=== PATIENT | male | born 1985 | race Two or more races ===

== ENCOUNTER 2025-10-13 12:47 | Outpatient (OUT) | payer BC, SELFPAY ==
--- OUTSIDE RECORDS SUMMARY | 2025-10-13 12:56 | XMS_ITS | Clinical Summary ---
Author Organization [facility] Healthcare Address [address] [place] [address] Care Team Providers Care Buffing Wheel Former Automatic Name Role Phone Unavailable Primary Care Provider Unavailabl e Social History Tobacco UseTypesPacks/DayYears UsedDateSmoking Tobacco: Never AssessedSex and Gender InformationValueDate RecordedSex Assigned at BirthNot on fileLegal Sex Male01/08/2023 11:09 PM EDTGender IdentityNot on fileSexual OrientationNot on file Last Filed Vital Signs Vital SignReadingTime TakenCommentsBlood Svgpddqf346/7507 12:00 PM EDT Pulse--Temperature--Respiratory Rate--Oxygen Saturation--Inhaled Oxygen Concentration--Zdftnf484 kg (229 lb)05/21/2022 12:00 PM ARYHejqvb662.8 cm (5' 10 )05/21/2022 12:00 PM EDTBody Mass Index32.8605/21/2022 12:00 PM EDT Plan of Treatment Not on file Insurance
--- OUTSIDE RECORDS SUMMARY | 2025-10-13 12:56 | XMS_ITS | Clinical Summary ---
Author Organization [facility] Address [address] [place] [address] Care Team Providers Care School Plant Consultant Name Role Phone Veronica Leon LOADER ENGINEER Primary Care Provider [phone] Allergies No known active allergies Medications MedicationSigDispense QuantityRefillsLast FilledStart DateEnd DateStatus ibuprofen (ADVIL,MOTRIN) 200 MG tablet Take 3 (three) tablets (600 mg total) by mouth every 6 (six) hours as needed . Active allopurinoL (ZYLOPRIM) 300 MG tablet Take 1 (one) tablet (300 mg total) by mouth daily . 30 tablet 3Active Additional Information Patient not taking.Reported on 08/31/2024 rivaroxaban (Xarelto) 10 mg tablet Indications:Ankle arthritis,Pre-op evaluationTake 1 (one) tablet (10 mg total) by mouth daily . 30 tablet 4Active lidocaine (LIDODERM) 5 % patch Place 1 (one) patch on the skin daily Remove & Discard patch within 12 hours or as directed by MD .Active Active Problems ProblemNoted DateDiagnosed DateObesity (BMI 30-39.9)11/28/2023 Assessment & Plan (11/28/2023 8:22 AM EST): Body mass index is 33.86 kg/m??. Gout11/28/2023 Assessment & Plan (11/28/2023 8:22 AM EST): Allopurinol Preop syeuaqhlsdf57/02/2024 Assessment & Plan (11/28/2023 8:29 AM EST): Patient is medically acceptable for planned surgery. He denies known chronic conditions besides Gout. He describes a greater than 4 mets of functional capacity without symptoms of shortness of breathor chest pain. EKG is similar to previous. Based on 2014 ACC/AHA guidelines no further testing is indicated. Preoperative sleep apnea risk assessment score is 2/3 indicating moderate risk for post operative nausea and vomiting. Apfel score is 2, suggesting moderate risk for post operative nausea and vomiting. The patient has undergone multiple surgeries in the past, patient reports all of which were uneventful from a cardiac and anesthesia standpoint. Ankle doiokjcqp86/21/2023 Assessment & Plan (11/28/2023 8:04 AM EST): Surgery Information ID Date/Time Status Primary Surgeon All Procedures Location [id number] 12/19/2023 0735 Scheduled MANDA Tucker, DPM Ankle joint and talonavicular joint arthrotomy with extensive debridement, synovectomy and exostectomy. Possible microfracture to talonavicular joint, Podiatry and Ortho set, sagittal saw, power rasp, sharp osteotomes, big C arm [facility] contracture of ankle09/16/2023rthritis of ttzmouk4109/16/2023Tobacco pqyfkrlryy54/21/2023Chronic pain of left ankle09/16/2023 Family History Medical HistoryRelationCommentsHypertensionFatherDiabetesMaternal Grandfather DiabetesMaternal GrandmotherHypertensionMotherRelationStatusCommentsFather Maternal GrandfatherMaternal GrandmotherMother Social History Tobacco UseTypesPacks/DayYears UsedDateSmoking Tobacco: WsrvvtElmppjnxij4Kkyy: 08/2023Smokeless Tobacco: Never Tobacco Cessation:Counseling Given: Not Answered Comments:1 pack/ week Alcohol UseStandard Drinks/WeekCommentsNot Currently0 (1 standard drink = 0.6 oz pure alcohol)Sex and Gender InformationValueDate RecordedSex Assigned at Not on fileLegal KjaUqgv20/14/2021 4:22 PM ESTGender ShhgltexZqrq05/14/2021 4:48 PM ESTSexual HpfbksaepbcFalbesnf86/14/2021 4:48 PM EST Last Filed Vital Signs Vital SignReadingTime TakenCommentsBlood Kzztwtdp482/7602/ 2:19 PM EST Chgkj253012/23/2024 2:19 PM YDMSysrqjhspqa72.8 ??C (98.3 ??F)12/23/2024 2:19 PM ESTRespiratory Bufj900201/02/2024 9:23 AM ESTOxygen Fimheqgrne49%09/09/2024 2:47 PM ESTInhaled Oxygen Concentration--Uguvnp908.3 kg (230 lb)01/02/2024 9:23 AM QAGGvkulm009.8 cm (5' 10 )12/29/2023 8:56 AM ESTBody Mass Paguy329512/29/2023 8:56 AM EST Plan of Treatment Health MaintenanceDue DateLast DoneCommentsDepression Screening/Follow-Up (PHQ-2/9)1999Varicella Vaccines (1 of 2 - 13+ 2-dose series)2000HIV Eflpvspiz26/23/2002Hepatitis C Lxhcigkqw84/23/2005Tetanus/Diphtheria/Pertussis (1 - Tdap)2006HPV Vaccines (1 - 3-dose SCDM series)2014Wellness Visit/OVID-19 Vaccine (1 - 2024- season)2025 Influenza Vaccine (#1)2025Zoster Vaccines (1 of 2)2037RSV Vaccines (1 - 1-dose 75+ series)2062Hepatitis B TqfcisxsFixnvzhfx20/04/2019, 05/11/2019, 01/19/2019, Additional history existsHIB VaccinesAged OutNo longer eligible based on patient's age to complete this topicHepatitis A VaccinesAged OutNo longer eligible based on patient's age to complete this topicIPV Vaccines Aged OutNo longer eligible based on patient's age to complete this topic Meningococcal ACWY VaccineAged OutNo longer eligible based on patient's age to complete this topicMeningococcal B VaccineAged OutNo longer eligible based on patient's age to complete this topicPneumococcal VaccineAged OutNo longer eligible based on patient's age to complete this topicRotavirus VaccinesAged Out No longer eligible based on patient's age to complete this topic Insurance Advance Directives For more information, please contact: [phone] * Full Code (Latest Code Status on File) Date ActivatedDate InactivatedComments12/19/2023 12:44 PM2 4:34 PM Care Teams Team MemberRelationshipSpecialtyStart DateEnd Date Veronica Leon CNP [address] [place] [address] PCP - GeneralNurse Hgbvnpdiookv67/6/24
--- OUTSIDE RECORDS SUMMARY | 2025-10-13 12:56 | XMS_ITS | Clinical Summary ---
Author Organization [facility] Address [address], [address] [place] [address] Care Team Providers Care Partition Setter Name Role Phone Unavailable Primary Care Provider Unavailabl e Allergies No known active allergies Medications MedicationSigDispense QuantityRefillsLast FilledStart DateEnd DateStatus terbinafine (LAMISIL) 250 MG tablet Take 250 mg by mouth dailyActive ibuprofen (ADVIL;MOTRIN) 200 MG tablet Take 600 mg by mouth every 6 hours as needed for PainActive cyclobenzaprine (FLEXERIL) 10 MG tablet Take 1 tablet by mouth 2 times daily as needed for Muscle spasms 10 tablet 11/20/2016Active Active Problems ProblemNoted DateDiagnosed VplrEjygwahp39/30/2015 Family History RelationNameStatusCommentsFatherAliveMotherAlive Social History Tobacco UseTypesPacks/DayYears UsedDateSmoking Tobacco: Every DayCigarettes Smokeless Tobacco: NeverAlcohol UseStandard Drinks/WeekCommentsYes0 (1 standard drink = 0.6 oz pure alcohol)occas.Sex and Gender InformationValueDate Recorded Sex Assigned at BirthNot on fileLegal OwnCkmw0507/04/2015 9:46 PM EDTGender IdentityNot on fileSexual OrientationNot on file Last Filed Vital Signs Vital SignReadingTime TakenCommentsBlood Fclxhllv161/8201 10:15 AM EST Utmdl664311/20/2016 10:15 AM EGVNyzyjxyhpcc60.6 ??C (97.8 ??F)11/20/2016 10:15 AM ESTRespiratory Mdgd963111/20/2016 10:15 AM ESTOxygen Gmmwhgigwz708%11/20/2016 10:15 AM ESTInhaled Oxygen Concentration--Chiyby75.8 kg (220 lb)08/17/2015 3:35 PM REZPphrag487.3 cm (5' 11 )08/17/2015 3:35 PM EDTBody Mass Index30.68 08/17/2015 3:35 PM EDT Plan of Treatment Not on file Insurance Advance Directives * Full Code (Latest Code Status on File) Date ActivatedDate AbwdiyxrvvyVqkovasa96/1/2015 8:12 AM07/27/2015 3:33 PM
--- NOTE | 2025-10-13 12:58 | XR_ITS ---
[facility] [place] [id number] Patient Name: LILIYA MORALES MRN: [id number] date: 1985 Sex: M Assigned Patient Location: RAD Current Patient Location: [facility] Accession/Order Number: [id number] Exam Date: 10/13/2025 13:02 Report Date: 10/13/2025 13:29 At the request of: JING CUNNINGHAM DPJonh Procedure: XR ankle LT min 3V LEFT ANKLE - 3 views CLINICAL DATA: Right ankle pain. Previous surgeries for gout. COMPARISON: None Standing AP, lateral and oblique views were obtained. There is osteopenia. There is no acute fracture or dislocation. The talar dome is intact. Minor degenerative changes seen at the malleoli. There is also minimal spurring at the dorsum of the tarsals. There is no significant soft tissue swelling. XR/XR ankle LT min 3V IMPRESSION: OSTEOPENIA AND MINIMAL DEGENERATIVE CHANGE. NO ACUTE BONY FINDINGS. Impression dictated by: tSephy Bullock M.D. 10/13/2025 1:29 PM Dictation Location: [place] [address] Electronically authenticated by: [id number] Y Date: 10/13/2025 13:29
== END 2025-10-13 12:48 | disposition home or self-care (01) ==
LOC: RAD 12:53
PROVIDERS: PCP Nurse Practitioner Family; Visit Provider Podiatrist Foot & Ankle Surgery
DX: M25.572 Pain in left ankle and joints of left foot (principal); M85.88 Other specified disorders of bone density and structure, other site
CPT/HCPCS: 73610